=== PATIENT | male | born 1975 | race African-American/Black ===

== ENCOUNTER 2022-05-01 15:05 | Emergency (ER) | payer SELFPAY ==
[~2022-05-01] VITALS: Ht 185.4 cm; Wt 100.0 kg
[2022-05-01 15:16] VITALS: BP 151/101
== END 2022-05-01 15:26 | disposition left against medical advice (07) ==
LOC: ER 15:05
DX: Z53.21 Procedure and treatment not carried out due to patient leaving prior to being seen by health care provider (principal)